=== PATIENT | male | born 1995 ===

== ENCOUNTER 2022-09-28 20:27 | Emergency (ER) | payer SELFPAY ==
[~2022-09-28] VITALS: Ht 181.6 cm; Wt 70.5 kg
[2022-09-28 21:05] VITALS: BP 132/78
== END 2022-09-28 21:36 | disposition left against medical advice (07) ==
LOC: ER 20:28
DX: F20.9 Schizophrenia, unspecified (principal); Z76.0 Encounter for issue of repeat prescription; Z53.21 Procedure and treatment not carried out due to patient leaving prior to being seen by health care provider
CPT/HCPCS: 99281